=== PATIENT | male | born 1950 | race African-American/Black ===

== ENCOUNTER → 2018-03-31 | Outpatient (REF) | payer OTHER, SELFPAY ==
[2018-03-31 13:26] LABS: FERRITIN 173 NG/ML (26-388); IRON (FE) 93 UG/DL (65-175); PERCENT SATURATION 37.7 % (19.7-50.0); TOTAL IRON BINDING CAPACITY 247 UG/DL (250-450)
[2018-03-31 13:28] LABS: HEPATITIS B SURFACE ANTIBODY NEGATIVE (POSITIVE)
[2018-03-31 13:38] LABS: HEPATITIS B SURFACE ANTIGEN NEGATIVE (NEGATIVE)
[2018-03-31 14:06] LABS: HIV 1&2 SCREEN CENTAUR NEGATIVE (NEGATIVE)
[2018-03-31 14:06] LABS: HEPATITIS C VIRUS ABY INDEX 0.1 INDEX (<0.8)
== END ==
LOC: M LAB REF 12:54
DX: N18.3 Chronic kidney disease, stage 3 (moderate) (principal); R80.9 Proteinuria, unspecified; D63.1 Anemia in chronic kidney disease
CPT/HCPCS: 83550

== ENCOUNTER → 2018-04-11 | Outpatient (CLI) | payer SELFPAY, OTHER | LOC: M RAD 07:28 | DX: N18.3 Chronic kidney disease, stage 3 (moderate) (principal); I12.9 Hypertensive chronic kidney disease with stage 1 through stage 4 chronic kidney disease, or unspecified chronic kidney disease; N13.30 Unspecified hydronephrosis | CPT/HCPCS: 76775 ==

== ENCOUNTER 2018-07-08 10:37 | Inpatient (IN) | payer OTHER, SELFPAY ==
[~2018-07-08] VITALS: Ht 185.4 cm; Wt 94.7 kg
[2018-07-08] MEDS ORDERED: HYDR-3910 PO (11:10)
[2018-07-08] MEDS ORDERED: ACET1TAB55 PO (11:10)
[2018-07-08] MEDS ORDERED: AMLO5TAB6 PO (11:10)
[2018-07-08] MEDS ORDERED: METO1TAB7 PO (11:10)
[2018-07-08] MEDS ORDERED: hydrALAZINE INJ 20 MG/ML VIAL IV ONE ×2 (11:30→13:30)
[2018-07-08] MEDS ORDERED: amLODIPine 5 MG TAB PO ONE ×2 (11:30→14:30)
[2018-07-08 11:33] LABS: HEMATOCRIT 32.4 % (36.0-47.0); MEAN CORPUSCULAR HEMOGLOBIN 28.7 pg (27.0-33.0); MEAN CORPUSCULAR VOLUME 84.6 fl (80.0-96.0); PLATELET COUNT, AUTOMATED 139 10^3/uL (150-450); RED BLOOD COUNT 3.83 10^6/uL (4.00-5.40); WHITE BLOOD COUNT 5.1 10^3/uL (4.0-10.0)
[2018-07-08 12:11] LABS: BLOOD UREA NITROGEN 21 MG/DL (7-18); CALCIUM LEVEL 9.1 MG/DL (8.8-10.2); CARBON DIOXIDE LEVEL 30 MEQ/L (21-32); CHLORIDE LEVEL 106 MEQ/L (98-107); CREATININE FOR GFR 2.31 MG/DL (0.55-1.30); GLOMERULAR FILTRATION RATE 27.2 (>45); GLUCOSE, FASTING 116 MG/DL (70-100); POTASSIUM SERUM 3.6 MEQ/L (3.5-5.1); SODIUM LEVEL 140 MEQ/L (136-145)
[2018-07-08] MEDS ORDERED: METO1TAB33 PO (14:04)
[2018-07-08] MEDS ORDERED: VITA-122 PO (14:04)
[2018-07-08] MEDS: HEPARIN SOD (PORCINE) 5000 UNITS/ML VIAL SC SCH ×2 (14:37→20:58)
--- NOTE | 2018-07-08 15:03 | HPE ---
DATE OF ADMISSION: 07/08/2018 PRIMARY CARE [place] NURSE BEHAVIORAL HEALTH CARE: Dr. Eddie Gutierrez HISTORY OF PRESENT ILLNESS: This is a 67-year-old male with a past medical history of hypertension, chronic kidney disease stage III, who was brought in by his daughter for persistent headache this morning. They state that he has a history of hypertension and being treated with amlodipine, hydralazine, and metoprolol, however, was recently taken off of his amlodipine and hydralazine at home and increased metoprolol dose to 100 mg. Over the past few weeks, they have noted that his blood pressure at home has been significantly elevated with systolic in the 200s since this change was made. They have tried homeopathic remedies, including malanga drink in order to decrease his blood pressure. Currently, the patient has no complaints. He states that his headache has subsided and he denies any blurred vision, eye pain, nausea, vomiting, abdominal pain or difficulty urinating. Of note, he was administered amlodipine 5 mg orally and hydralazine, a total of 50 mg IV in the emergency room. His electrocardiogram (EKG) showed no ST changes and was sinus hernandez on admission. HOME MEDICATIONS: - acetaminophen 650 mg by mouth every 4 hours as needed - amlodipine 5 mg by mouth daily - vitamin D 2000 units by mouth daily - hydralazine 25 mg by mouth twice a day - metoprolol succinate ER 100 mg by mouth daily PAST MEDICAL HISTORY: 1. Hypertension. 2. Chronic kidney disease stage III. ALLERGIES: No known allergies. FAMILY HISTORY: The patient is unsure. PAST SURGICAL HISTORY: Denies any surgeries. REVIEW OF SYSTEMS: GENERAL: Denies any fevers, chills, weight loss, night sweats. HEENT: Denies any vision changes, blurred vision, eye pain, ear pain, dysphagia. Admits to a recent headache with elevated blood pressure that is now resolved. CARDIAC: Denies any chest pain, palpitations. RESPIRATORY: Denies any coughing, wheezing, sputum production. GASTROINTESTINAL: Denies any abdominal pain, nausea or vomiting. EXTREMITIES: Denies any new aches or pains. NEUROLOGIC: Denies any slurred speech or changes in vision or mentation. No new paresthesias. PHYSICAL EXAMINATION: VITAL SIGNS: Temperature 97.8, pulse 54, respirations 18, blood pressure 197/94 with a mean arterial pressure of 128, pulse oximetry 98% on room air. GENERAL: Resting comfortably in bed. Alert and oriented times three. No acute distress. Pleasant and conversant. HEENT: Normocephalic, atraumatic. Pupils are equal, round and reactive to light. Extraocular muscles intact. Anicteric sclerae. No pharyngeal exudates or erythema. CARDIAC: Regular rate and rhythm. Normal S1, S2. No audible murmurs. LUNGS: Clear to auscultation bilaterally. Equal chest rise. No wheezing, rhonchi or rales. ABDOMEN: Soft, nontender, nondistended. Positive bowel sounds. EXTREMITIES: 2+ radial and dorsalis pedis pulses bilaterally. 5/5 strength throughout. Equal oncology pharmacist strength bilaterally. NEUROLOGIC: No focal deficits. Motor and sensation intact. LABORATORIES: WBC 5.1, hemoglobin and hematocrit 11 and 32.4, platelets 139. Sodium 140, potassium 3.6, chloride 106, bicarbonate 30, BUN and creatinine 21 and 2.31. ASSESSMENT AND PLAN: 1. Hypertensive urgency. The patient initially presented with a blood pressure of 216/105 with a MAP of 142, which is mildly improved after being administered 5 mg of oral Norvasc and 50 mg of IV hydralazine in the emergency room. Systolic blood pressure remains around 200 currently. Hypertensive urgency is likely secondary to recent changes to his antihypertensive regimen at home. We will resume him on his home dose of amlodipine and hydralazine and we will cautiously hold his home dose of metoprolol given that he is bradycardic on admission. Consider resuming metoprolol once his heart rate improves. We will closely monitor his blood pressure overnight. We will also obtain a UA to better assess kidney function. He does have a renal ultrasound done just recently in April of this past year with severe right renal atrophy and no renal artery stenosis. The goal is to gradually bring down his blood pressure back to normal. I do NOT anticipate that he will be normotensive tonight. This was discussed with the patient and the daughter. Goal at this point is to keep systolic blood pressure 160 to 180 for today, or decreasing MAP by 25%. 2. Chronic kidney disease stage III. We do not have any previous laboratories to compare his current renal function to. His current creatinine is 2.31 with a GFR of 27. He normally follows with Dr. Eddie Gutierrez, geothermal production manager has been consulted by the emergency room. Appreciate nephrology's input. At this point, there are no dire needs for bedside dialysis. 3. Deep vein thrombosis (DVT) prophylaxis. Heparin subcutaneously. DISPOSITION: Admit to hospitalist service with close monitoring of blood pressure and heart rate. Nephrology consultation in place. My faculty preceptor for this patient encounter was physically present during the encounter and was fully available. All aspects of the patient interview, examination, medical decision making process, and medical care plan development were reviewed and approved by the faculty preceptor. The faculty preceptor is aware and concurs with the plan as stated in the body of this note and will attest to such by his/her co-signature. Attending Attestation I have both independently examined this patient as well as reviewed the h and P . I have discussed in detail with the resident the findings and plan of treatment as documented in the resident's note. I will continue to follow the patient and offer further guidance to the patient's care as necessary during this hospital stay. ALFRED
[2018-07-08 15:38] LABS: CK-MB VALUE MASS < 1.0 NG/ML (<3.6); CPK CREATINE PHOSPHOKINASE 162 U/L (39-308); MAGNESIUM LEVEL 2.5 MG/DL (1.8-2.4); MB/CK RELATIVE INDEX 0.62 (< OR =4); TROPONIN I < 0.02 NG/ML (< 0.10)
[2018-07-08] MEDS: ACETAMINOPHEN TAB 650MG DOSE (2X325MG) PO PRN ×2 (18:54→23:47)
[2018-07-08 19:19] LABS: APPEARANCE, URINE CLEAR (CLEAR); BACTERIA, URINE AUTO NEGATIVE (NEGATIVE); BILIRUBIN, URINE AUTO NEGATIVE (NEGATIVE); BLOOD, URINE BLOOD NEGATIVE (NEGATIVE); COLOR, URINE STRAW (YELLOW); GLUCOSE, URINE (UA) AUTO NEGATIVE (NEGATIVE); KETONE, URINE AUTO NEGATIVE (NEGATIVE); LEUKOCYTE ESTERASE, URINE AUTO NEGATIVE (NEGATIVE); NITRITE, URINE AUTO NEGATIVE (NEGATIVE); PROTEIN, URINE AUTO 1+ mg/dL (NEGATIVE); RBC, URINE AUTO 3 /HPF (0-3); SPECIFIC GRAVITY URINE AUTO 1.009 (1.002-1.035); SQUAMOUS EPITHELIAL CELL UR AU 0 /HPF (0-6); UROBILINOGEN, URINE AUTO 0.2 mg/dL (0.0-2.0); WBC, URINE AUTO 0 /HPF (0-3)
[2018-07-08 19:47] LABS: CPK CREATINE PHOSPHOKINASE 343 U/L (39-308); MB/CK RELATIVE INDEX 0.47 (< OR =4); TROPONIN I < 0.02 NG/ML (< 0.10)
[2018-07-08 20:40] VITALS: BP 190/92
[2018-07-08] MEDS: **hydrALAZINE HCL** 25 MG TAB PO SCH (20:57)
[2018-07-08 21:50] VITALS: BP 182/88
[2018-07-08 23:30] VITALS: BP 190/100
[2018-07-08] MEDS ORDERED: **hydrALAZINE HCL** 25 MG TAB PO ONE (23:45)
[2018-07-09] VITALS (9 sets, daily range): BP systolic 160–200; BP diastolic 60–102
[2018-07-09 03:49] LABS: CPK CREATINE PHOSPHOKINASE 656 U/L (39-308); TROPONIN I < 0.02 NG/ML (< 0.10)
[2018-07-09] MEDS: HEPARIN SOD (PORCINE) 5000 UNITS/ML VIAL SC SCH ×3 (05:38→22:00)
[2018-07-09 06:04] LABS: HEMATOCRIT 32.2 % (42.0-52.0); HEMOGLOBIN 10.8 g/dl (13.5-17.5); MEAN CORPUSCULAR HEMOGLOBIN 28.4 pg (27.0-33.0); MEAN CORPUSCULAR HGB CONC 33.5 g/dl (32.0-36.5); MEAN CORPUSCULAR VOLUME 84.7 fl (80.0-96.0); PLATELET COUNT, AUTOMATED 125 10^3/uL (150-450); WHITE BLOOD COUNT 4.7 10^3/uL (4.0-10.0)
[2018-07-09 06:28] LABS: CREATININE FOR GFR 2.1 MG/DL (0.70-1.30); POTASSIUM SERUM 3.8 MEQ/L (3.5-5.1)
[2018-07-09] MEDS: **hydrALAZINE HCL** 25 MG TAB PO SCH (06:28)
[2018-07-09] MEDS: VITAMIN D 1,000 INTERNATIONAL UNITS TABLET PO SCH (08:48)
[2018-07-09] MEDS: amLODIPine 10 MG TAB PO SCH (08:49)
--- NOTE | 2018-07-09 08:55 | ECGEPIP ---
Stationary ECG Study [facility] - ED Test Date: 2018-07-08 Pat Name: JANETH MOREL Department: Room: - Gender: F Senior Research Scientist: CANDIS : [id number] Requested By: Haroon Calle Order Number: [id number] Reading MD: Haroon Valdes Measurements Intervals [place] Rate: 55 P: 50 CT: 185 QRS: -28 QRSD: 108 T: 3 QT: 437 QTc: 421 Interpretive Statements SINUS BRADYCARDIA SEPTAL MYOCARDIAL INFARCTION, OF INDETERMINATE AGE NSTTW ABNORMALITIES NO PRIORS FOR COMPARISON Electronically Signed On 07-09-2018 8:55:07 EST by Haroon Valdes
[2018-07-09] MEDS ORDERED: amLODIPine 5 MG TAB PO SCH (09:00)
--- NOTE | 2018-07-09 10:33 | REP ---
CT ABDOMEN AND PELVIS WITHOUT IV OR ORAL CONTRAST: RENAL STONE PROTOCOL. HISTORY: Right-sided hydronephrosis. Question ureteral obstruction. Comparison sonography April 11, 2018 showed severe right renal atrophy and right-sided hydronephrosis. No other comparison imaging. CT FINDINGS: Preliminary digital information systems analyst radiograph is unremarkable. The lung bases are clear on axial CT images. There are gallstones in the gallbladder lumen. No focal hepatic lesion is seen. Spleen is unremarkable. Normal adrenal glands are seen. No pancreatic abnormality is seen. There is severe hydronephrosis and moderate hydroureter on the right. There is an intrarenal calculus in the right kidney which measures 5 mm in greatest diameter, but this is not in the ureter. The right hydroureter can be traced to the level of the aortic bifurcation where it courses over the right common iliac artery. No mass or fibrosis is seen. The ureter is not dilated below the vascular crossing. No ureteral stone is observed. No bladder calculus is appreciated. There is no hydronephrosis on the left. No intrarenal calculus is noted on the left. Mild vascular calcification is seen in the abdominal aorta. Normal appendix is seen. Small and large intestinal bowel loops are unremarkable. No retroperitoneal mass or adenopathy is seen. No abdominal wall defect is noted. There are degenerative spondylosis changes in the lumbar spine. IMPRESSION: 1. Cholelithiasis. 2. Marked atrophy and moderate to marked hydronephrosis, right kidney. Hydroureter to the level of the vascular crossing with the right common iliac artery. No etiology for ureteral obstruction is visualized. 3. There is an intrarenal calculus 5 mm in diameter in the right mid kidney. 4. Vascular calcification. Electronically Signed by Kalen Momin MD 07/09/2018 06:50 P
[2018-07-09] MEDS ORDERED: **hydrALAZINE** 50 MG TAB As Ordered ONE (10:43)
[2018-07-09] MEDS: **hydrALAZINE** 50 MG TAB PO SCH ×2 (10:47→22:00)
--- NOTE | 2018-07-09 20:14 | IPN ---
DATE: 07/09/2018 He is better. He denied any headache and any further nausea, vomiting, chest pressure. OBJECTIVE: VITAL SIGNS: Temperature 98.3, pulse 83, respiratory rate 15, blood pressure 160/80, oxygen saturation 97% on room air. GENERAL: He is a very pleasant man sitting up in bed eating breakfast. He does not appear to be in any acute distress. HEENT: Cranial nerves II through XII are grossly intact. He had moist mucous membranes. No elevation in central venous pressure. CARDIOVASCULAR: S1, S2 regular. RESPIRATORY EXAM: Clear. ABDOMINAL EXAM: Obese. EXTREMITIES: No clubbing, cyanosis, or edema. LABORATORY STUDIES: WBC 4.7, hemoglobin 10.8, platelet 125. Chemistry panel: Sodium 141, potassium 3.8, chloride 106, BUN 20, creatinine 2.1, CK 640. Cardiac enzymes are negative. Urinalysis is unremarkable other than 1+ protein. IMAGING: CT scan of the abdomen and pelvis revealed cholelithiasis, marked atrophy and moderate to marked hydronephrosis of the right kidney and hydroureter to the level of the vascular crossing with a right common iliac artery. No etiology or periureteral obstruction is visualized. ASSESSMENT AND PLAN: This is a 67-year man with uncontrolled hypertension. PROBLEMS: 1. Uncontrolled hypertension. Certainly with his renal findings it is a possibility that this is secondary hypertension related to renal vascular hypertension. He is improved at this time. I have titrated the Hydralazine to 50 every 8 as well as increased his amlodipine to 10 mg. I will hold his beta adin given his bradycardia. He may require further titration of his medications. He was also noncompliant with his medications while traveling recently. He has not had them of late which I think is also playing a role. He has had them adjusted through the [facility] and was hoping that was followed up further on the outpatient setting as per his daughter through the nephrology clinic. 2. Mild hydroureter hydronephrosis. Etiology is no immediately clear. There does not appear to be any obstruction and it does not appear to be acute but rather chronic. His renal function is actually improved today. We will consider outpatient urology referral. Nephrology will see the patient today and their help is greatly appreciated. 3. DVT prophylaxis. Heparin. DISPOSITION: Pending optimization of blood pressure.
[2018-07-09] MEDS: CARVedilol 6.25 MG TAB PO SCH (21:59)
[2018-07-10 01:06] VITALS: BP 174/90
[2018-07-10] MEDS: **hydrALAZINE** 50 MG TAB PO SCH ×3 (05:59→21:11)
[2018-07-10 06:00] VITALS: BP 176/100
[2018-07-10] MEDS: HEPARIN SOD (PORCINE) 5000 UNITS/ML VIAL SC SCH ×3 (06:00→21:12)
[2018-07-10 06:42] LABS: HEMATOCRIT 31.3 % (42.0-52.0); HEMOGLOBIN 10.7 g/dl (13.5-17.5); MEAN CORPUSCULAR HEMOGLOBIN 28.8 pg (27.0-33.0); MEAN CORPUSCULAR HGB CONC 34.2 g/dl (32.0-36.5); MEAN CORPUSCULAR VOLUME 84.1 fl (80.0-96.0); PLATELET COUNT, AUTOMATED 133 10^3/uL (150-450); RED BLOOD COUNT 3.72 10^6/uL (4.30-6.10); WHITE BLOOD COUNT 4.7 10^3/uL (4.0-10.0)
[2018-07-10 07:09] LABS: CREATININE FOR GFR 2.33 MG/DL (0.70-1.30); GLOMERULAR FILTRATION RATE 36.3 (>49); POTASSIUM SERUM 3.9 MEQ/L (3.5-5.1)
[2018-07-10 07:10] LABS: CALCIUM LEVEL 8.9 MG/DL (8.8-10.2); PERCENT SATURATION 31.9 % (19.7-50.0)
--- NOTE | 2018-07-10 08:04 | CR ---
DATE OF CONSULTATION: 07/09/2018 REQUESTING PHYSICIAN: Dr. Ann Calderón. REASON FOR CONSULTATION: Management of hypertensive urgency in this patient with chronic kidney disease stage III and proteinuria. CHIEF COMPLAINT: The patient was brought to the emergency room yesterday with headaches and elevated blood pressures. HISTORY OF PRESENT ILLNESS: This patient is a 67-year-old male originally from [facility] with history of chronic kidney disease stage III and hypertension. He followed up once in the nephrology clinic back in March 2018. At that time he was seen for hypertension and proteinuria with chronic kidney disease (CKD) III. His creatinine at that point was around 2.5. All the proteinuria workup was ordered. His medications were adjusted at that point for hypertension. He was supposed to be on metoprolol XL 50 mg daily, amlodipine 10 mg daily, and hydralazine 25 mg by mouth twice a day was added. He was asked to followup in one month; however, the patient never followed up in the clinic. He was supposed to followup again in July; however, I believe the patient was not very compliant with his medications. They report that his metoprolol dose was increased to 100 mg daily and amlodipine and hydralazine was stopped by his primary care physician (PCP). He presented to the emergency room yesterday with a significantly elevated blood pressure. Systolic blood pressures were more than 200. He was having headaches and blurry vision. In the emergency room he was given hydralazine 50 mg intravenous (IV) and a dose of amlodipine 5 mg . There were no EKG changes. The patient was admitted under the hospitalist service last night with hypertensive urgency. Nephrology service was called for further help in the management of this patient with CKD III and hypertension. I saw and evaluated the patient this morning at the bedside. His daughter, who is in active duty in the was also present and she explained to me that the patient's blood pressure at home was not controlled. However, today, the patient is feeling much better as compared with yesterday. His systolic blood pressures are around 160s. PAST MEDICAL HISTORY: 1. Hypertension. 2. Chronic kidney disease stage III. 3. Proteinuria. PAST SURGICAL HISTORY: No significant past surgical history. ALLERGIES: No known drug allergies. FAMILY HISTORY: No significant family history of any end-stage renal disease regarding hemodialysis. SOCIAL HISTORY: The patient denies any illicit drug abuse, alcohol abuse. REVIEW OF SYSTEMS: CONSTITUTIONAL: He denies any fever or chills. EYES: He reported blurry vision on admission; however he is feeling better today. ENT: He denies any dysphagia, odynophagia or ear discharge. CARDIOVASCULAR: He denies any palpitation or chest pain. RESPIRATORY: He denies any shortness of breath. GI: Patient denies any nausea or vomiting. GENITOURINARY: He denies any dysuria, hematuria. MUSCULOSKELETAL: He reports muscle aches or pains. SHEET ROCK TAPER He reported headaches but he denies any strokes or seizures. PSYCH: He denies any depression or anxiety. ENDOCRINE: He denies any diabetes or hypothyroidism. HEMATOLOGICAL/ONCOLOGICAL: He denies any easy bleeding or bruising. SKIN: He denies any rashes or ulcers. The remainder of system review is negative. PHYSICAL EXAMINATION: GENERAL: Patient is awake, alert, oriented times three lying in bed. VITAL SIGNS: Temperature 98.3 degrees Fahrenheit, blood pressure 160/80, pulse 83, respiratory rate 16, saturating 97% on room air. The patient's blood pressure last night was 211/101 when he came in. HEAD AND NECK EXAM: Extraocular muscles intact. Pupils equal, round, reactive to light. Moist mucous membranes. NECK: Neck is supple. There is no jugular venous distention (JVD). CARDIOVASCULAR: S1, S2, regular rate. No murmur, rub or gallop. RESPIRATORY: Chest is clear to auscultation bilaterally. Bilateral equal air entry. No rales or rhonchi. ABDOMEN : Soft, positive bowel sounds, nontender, no ascites, no hepatosplenomegaly. MUSCULOSKELETAL: No clubbing or cyanosis. Pulses 2+. SHEET ROCK TAPER: No focal deficits. Power is 5/5 in all extremities. PSYCHIATRIC: Normal mood and affect. SKIN: No rashes or ulcers. LABORATORY DATA: CBC revealed WBC of 4.7, hemoglobin 10.8, platelets 125. Urinalysis showed 1+ protein. Basic metabolic profile (BMP) showed sodium 141, potassium 3.8, chloride 106, bicarbonate 27, BUN 20, creatinine is 2.1. CPK 6, anion 4, troponin is less than 0.02. IMAGING: CAT scan of the abdomen and pelvis was done without contrast today which showed cholelithiasis, marked atrophy and moderate to mild hydronephrosis of the right kidney. Hydroureter to the level of the vascular crossing with the right common iliac artery. No evidence of ureteral obstruction is visualized. There was an intrarenal calculus 5 mm in diameter in the right kidney. There were vascular calcifications. CURRENT INPATIENT MEDICATIONS: - Tylenol as needed - amlodipine 10 mg daily - hydralazine 50 mg by mouth every 8 hours - vitamin D 2000 units daily - I started the patient on Coreg 6.25 mg by mouth twice daily with holding parameters ASSESSMENT: This patient is a 67-year-old male with chronic kidney disease stage III, right sided hydroureter nephrosis and hypertensive urgency. PLAN: 1. Hypertensive urgency. The patient was not taking the prescribed medications that were prescribed from the nephrology clinic since March 2018. He was only taking metoprolol. He came in with bradycardia and hypertension. The primary team has already started him on hydralazine and amlodipine instead of the metoprolol I have started him on carvedilol 6.25 mg by mouth twice a day with holding parameters. Continue the current regimen, the next change in regimen will be done after 24 hours of medications. 2. Rt sided Hydroureteronephrosis: Pt needs to be seen by urology for possible cystoureteroscopy. 3. Chronic kidney disease stage III. This is mostly secondary to hypertensive nephrosclerosis but the patient has severe right sided hydroureter nephrosis. The patient needs evaluation by urology for distal ureteroscopy. 4. Proteinuria. The patient has mild persistent proteinuria. All of the workup was already ordered in the clinic last time. I will not repeat the serology at this point. It might be associated with hypertension; however, right-sided hydroureteronephrosis workup for obstruction needs to be done. 5. Anemia secondary to chronic kidney disease. Hemoglobin is 10.8 which is optimal. I am going to check his iron levels. 6. Secondary hyperparathyroidism of renal origin. I am going to check the PTH levels tomorrow morning. Thank you for involving me in the care of this patient. I shall be happy to follow the patient along with you tomorrow morning. KIMBERLYD
[2018-07-10] MEDS ORDERED: FLUBLOK(EGG FREE)(QUAD)INFLUENZA VACC 0.5ML SYRINGE (90682)18YRS&OLDER IM ONE (09:00)
[2018-07-10 10:07] VITALS: BP 180/90
[2018-07-10 10:40] LABS: PTH INTACT 169.4 PG/ML (18.5-88.0)
[2018-07-10] MEDS: CARVedilol 6.25 MG TAB PO SCH ×2 (10:48→21:11)
[2018-07-10] MEDS: amLODIPine 10 MG TAB PO SCH (10:48)
[2018-07-10] MEDS: VITAMIN D 1,000 INTERNATIONAL UNITS TABLET PO SCH (10:48)
--- NOTE | 2018-07-10 11:41 | IPNPDOC ---
Text Note Date of Service The patient was seen on 07/10/18. NOTE Subjective: Patient was examined at bedside, no acute complaint, he was afebrile overnight. He was eating breakfast. Denies chest pain, denies nausea, denied vomiting, cesar es shortness of breath, or difficulty breathing. OBJECTIVE: VITAL SIGNS: See below GENERAL: Pleasant, elderly, -Prydeinig gentleman, in breakfast, no acute complaints HEENT: Head is atraumatic, neck is supple, no JVD, throat is moist CARDIOVASCULAR: S1, S2 normal and regular. RESPIRATORY EXAM: Clear to auscultate anterior, no wheezing ABDOMINAL EXAM: Soft, nontender, obese abdomen EXTREMITIES: No deformity, no cyanosis LABORATORY STUDIES: See below IMAGING: CT scan of the abdomen and pelvis revealed cholelithiasis, marked atrophy and moderate to marked hydronephrosis of the right kidney and hydroureter to the level of the vascular crossing with a right common iliac artery. No etiology or periureteral obstruction is visualized. ASSESSMENT AND PLAN: This is a 67-year -Prydeinig gentleman, admitted for uncontrolled hypertension, in hypertensive urgency. PROBLEMS: # Uncontrolled hypertension. 2/2 Medication noncompliance, 2/2 renal vascular hypertension, unlikely to be PRICE, 2/2 Hydronephrosis -Current regimen including carvedilol 6.5 mg twice a day, hydralazine 50 mg every 8 hours, Norvasc 10 mg by mouth daily, blood pressure is averaging around 170/100, this is an improvement over presenting blood pressure. We'll continue to monitor. Make medication adjustment as necessary. -Nephrology has been consulted, appreciate input -PRICE questionnaire, patient does not snore at night, does not wake up in the middle of night gasping for air, denies daytime somnolence, -Patient will follow [facility] for [facility] therapy #Mild hydroureter hydronephrosis. Etiology is no immediately clear. - Inpatient urology consult for nuclear medicine scan to determine the functionality of the kidney - BUN and creatinine had been trending down. However, there was an increase in both BUN and creatinine. Current BUN is 23, current creatinine is 2.33 -Nephrology consulted # DVT prophylaxis. Heparin. VS,Fishbone, I+O VS, Fishbone, I+O Laboratory Tests 07/10/18 06:14 Red Blood Count 3.72 L, Mean Corpuscular Volume 84.1, Mean Corpuscular Hemoglobin 28.8, Mean Corpuscular Hemoglobin Concent 34.2, Red Cell Distribution Width 14.1, Calcium Level 8.9 Vital Signs Date Time Temp Pulse Resp B/P (MAP) Pulse Ox O2 Delivery O2 Flow Rate FiO2 07/10/18 10:48 94 180/90 07/10/18 10:07 98.2 16 96 07/08/18 20:20 Room Air I&O- Last 24 Hours up to 6 AM 07/10/18 05:59 Intake Total 1300 ml Output Total 1725 ml Balance -425 ml GME ATTESTATION GME ATTESTATION My faculty preceptor for this patient encounter was physically present during the encounter and was fully available. All aspects of the patient interview, examination, medical decision making process, and medical care plan development were reviewed and approved by the faculty preceptor. The faculty preceptor is aware and concurs with the plan as stated in the body of this note and will attest to such by his/her cosignature. HAZEL FRASER DO Jul 10, 2018 11:41
[2018-07-10 13:50] VITALS: BP 170/72
--- NOTE | 2018-07-10 15:28 | REP ---
Nuclear renal scintigraphy with differential flow and function analysis: History: Chronic right-sided hydronephrosis. Chronic kidney disease. Comparison study CT exam July 09, 2018. Technique: 8.8 mCi of technetium 99m MAG3 is injected and posterior flow and excretory phase images are acquired. Renal cortical regions of interest are drawn and time activity curves are plotted for renal function analysis. Scintigraphic findings: The posterior flow study shows normal perfusion of the left kidney and absent perfusion activity on the right. Excretory phase images show no discernible right renal function until the 7 to 8 minute miley when there is faint uptake in the atrophic right kidney. No left renal mass is seen. Renal collecting system labeling is observed at the 4 minute miley on the left. There is no evidence of left-sided obstructive uropathy. Pre and postvoid images show extremely poor visualization of the right kidney, but are otherwise unremarkable. Differential renal function analysis is asymmetric of course with a 91% of counts coming from the left kidney and 9% of renal cortical counts emanating from the right kidney. Time to peak activity is essentially normal on the left at 3.0 minutes. Time to half max activity is delayed on the left at 17.1 minutes. There is not sufficient count activity in the right kidney to accurately quantify T-max or time to half max. Impression: Extremely poor, barely visible function right kidney. The collecting system and ureter were never visualized. Slightly flattened excretion curve on the left as well. No obstructive uropathy on the left. Electronically Signed by Kalen Momin MD 07/10/2018 10:28 P
--- NOTE | 2018-07-10 15:49 | CR.PDOC ---
General Date of Consultation: Jul 10, 2018 Referring Provider: BETTY SAGE MD Primary Care Physician: JOJO NÚÑEZ MD Attending Physician: BETTY SAGE MD Consultation REASON FOR CONSULTATION/CHIEF COMPLAINT: hydronephrosis right kidney. HISTORY OF PRESENT ILLNESS: 10year h/o flank pain, hypertension and recent hypertensive crisis and associated headache in a recently immigrated 67yo male from [facility]. Pt is living in [place] with is daughter and . His daughter brought him to the hospital d/t headache and was identified with extension of nephrologic disease. He has been under the care of nephrology since march 2018. ALLERGIES: Please see below. HOME MEDICATIONS: Please see below. PAST MEDICAL HISTORY: 1. hypertension. 2. flank pain. 3. former smoker (stopped 10y ago) PAST SURGICAL HISTORY: 1. none FAMILY HISTORY: no h/o kidney disease or diabetes SOCIAL HISTORY: Marital status and/or living arrangements: Children: daughter in town Tobacco use:former ETOH: no Illicit drug use:no REVIEW OF SYSTEMS: CONSTITUTIONAL: He denies any fever or chills. EYES: He reported blurry vision on admission; however he is feeling better today. ENT: He denies any dysphagia, odynophagia or ear discharge. CARDIOVASCULAR: He denies any palpitation or chest pain. RESPIRATORY: He denies any shortness of breath. GI: Patient denies any nausea or vomiting. GENITOURINARY: He denies any dysuria, hematuria. leaves small amount of urine behind MUSCULOSKELETAL: He reports muscle aches or pains. TINSMITH APPRENTICE He reported headaches but he denies any strokes or seizures. PSYCH: He denies any depression or anxiety. ENDOCRINE: He denies any diabetes or hypothyroidism. HEMATOLOGICAL/ONCOLOGICAL: He denies any easy bleeding or bruising. SKIN: He denies any rashes or ulcers. The remainder of system review is negative. PHYSICAL EXAMINATION: GENERAL: Patient is awake, alert, oriented times three lying in bed. VITAL SIGNS: The patient's blood pressure last night was 211/101 when he came in. HEAD AND NECK EXAM: Extraocular muscles intact. Pupils equal, round, reactive to light. Moist mucous membranes. NECK: Neck is supple. There is no jugular venous distention (JVD). CARDIOVASCULAR: S1, S2, regular rate. No murmur, rub or gallop. RESPIRATORY: Chest is clear to auscultation bilaterally. Bilateral equal air entry. No rales or rhonchi. ABDOMEN : Soft, positive bowel sounds, nontender, no ascites, no hepatosplenomegaly. MUSCULOSKELETAL: No clubbing or cyanosis. Pulses 2+. TINSMITH APPRENTICE: No focal deficits. Power is 5/5 in all extremities. PSYCHIATRIC: Normal mood and affect. SKIN: No rashes or ulcers. LABORATORY DATA: Please see below. ASSESSMENT/PLAN: 1. requested urology consult: nm study completed appears the<13% function; r/b/a of surgery (lap v. robotic v. open) offered. Pt can be scheduled for as soon as 07/22/18. It is an ablative procedure so should not be extensive length of stay. spoke with nephrology. I believe this will help with bp control, but can not guarantee that. at this function there is no reconstructions necessary. there is a possibility of sl worse renal function for its <13% contribution. risks do not outweigh the benefit. I believe stopping the flow to the bad kidney will preserve the good kidney for longer. 2. would appreciate if pt had clearances from nephrology and hospitalist from their respective perspectives. I am ordering cxr and ekg that I would appreciated dr. sage commenting on for clearance. i will also psa f and total and start him on flomax for incomplete emptying. 3. this all can be done as an outpatient as the procedure is elective. Pt may request a second opinion if he chooses. all this was discussed with the patient directly. happy to discuss with patient and family as an outpatient. Vital Signs/I&O Vital Signs Date Time Temp Pulse Resp B/P (MAP) Pulse Ox O2 Delivery O2 Flow Rate FiO2 07/10/18 14:09 170/72 07/10/18 13:50 98.1 84 16 98 07/08/18 20:20 Room Air I&O- Last 24 Hours up to 6 AM 07/10/18 06:00 Intake Total 1330 ml Output Total 1725 ml Balance -395 ml Laboratory Data Labs 24H Laboratory Tests 2 07/10/18 06:14: Nucleated Red Blood Cells % (auto) 0.0, Anion Gap 7L, Glomerular Filtration Rate 36.3L, Blood Urea Nitrogen 23H, Creatinine 2.33H, Sodium Level 140, Potassium Level 3.9, Chloride Level 105, Carbon Dioxide Level 28, Calcium Level 8.9, Iron Level 72, Total Iron Binding Capacity 226L, Transferrin % Saturation 31.9, Ferritin 121, Parathyroid Hormone (Intact) 169.4H CBC/BMP Laboratory Tests 07/10/18 06:14 Red Blood Count 3.72 L, Mean Corpuscular Volume 84.1, Mean Corpuscular Hemoglobin 28.8, Mean Corpuscular Hemoglobin Concent 34.2, Red Cell Distribution Width 14.1, Calcium Level 8.9 Allergies Coded Allergies: No Known Allergies (Unverified , 07/08/18) Home Medications Scheduled Amlodipine Besylate (Amlodipine Besylate) 5 Mg Tab, 5 MG PO DAILY, (Reported) Cholecalciferol (Vitamin D3) 1,000 Unit Tab, 2,000 UNIT PO DAILY, (Reported) Hydralazine HCl (Hydralazine HCl) 25 Mg Tab, 25 MG PO BID, (Reported) Metoprolol Succinate (Metoprolol Succinate ER) 100 Mg Tab, 100 MG PO DAILY, (Reported) Scheduled PRN Acetaminophen (Acetaminophen) 325 Mg Tab, 650 MG PO Q4H PRN for PAIN, (Reported) Andrews Wade MD Jul 10, 2018 15:49
[2018-07-10 22:00] VITALS: BP 162/78
[2018-07-11 02:05] VITALS: BP 178/72
[2018-07-11 06:00] VITALS: BP 172/76
[2018-07-11] MEDS: **hydrALAZINE** 50 MG TAB PO SCH (06:00)
[2018-07-11] MEDS: HEPARIN SOD (PORCINE) 5000 UNITS/ML VIAL SC SCH (06:00)
[2018-07-11 06:17] LABS: HEMATOCRIT 31.5 % (42.0-52.0); HEMOGLOBIN 10.8 g/dl (13.5-17.5); MEAN CORPUSCULAR HGB CONC 34.3 g/dl (32.0-36.5); MEAN CORPUSCULAR VOLUME 84.5 fl (80.0-96.0); PLATELET COUNT, AUTOMATED 127 10^3/uL (150-450); RED BLOOD COUNT 3.73 10^6/uL (4.30-6.10); WHITE BLOOD COUNT 4.9 10^3/uL (4.0-10.0)
[2018-07-11 06:34] LABS: CALCIUM LEVEL 8.9 MG/DL (8.8-10.2); CREATININE FOR GFR 2.38 MG/DL (0.70-1.30); GLOMERULAR FILTRATION RATE 35.5 (>49); POTASSIUM SERUM 3.7 MEQ/L (3.5-5.1)
[2018-07-11 08:19] VITALS: BP 160/70
[2018-07-11 08:23] VITALS: BP 160/70
[2018-07-11] MEDS: amLODIPine 10 MG TAB PO SCH (08:23)
[2018-07-11] MEDS: CARVedilol 6.25 MG TAB PO SCH (08:23)
[2018-07-11] MEDS: VITAMIN D 1,000 INTERNATIONAL UNITS TABLET PO SCH (08:23)
[2018-07-11] MEDS ORDERED: HYDR50TA PO ×2 (08:40→08:49)
[2018-07-11] MEDS ORDERED: AMLO10TA5 PO ×2 (08:40→08:45)
[2018-07-11] MEDS ORDERED: CARV6.25 PO ×2 (08:40→08:47)
[2018-07-11] MEDS ORDERED: VITAD1000T PO ×2 (08:40→08:49)
[2018-07-11] MEDS ORDERED: FLOM0.4C39 PO ×2 (08:40→08:49)
[2018-07-11] MEDS ORDERED: TAMSULOSIN 0.4 MG CAP PO SCH (09:00)
[2018-07-11] MEDS ORDERED: CALCITRIOL 0.25 MCG CAP (S0169) PO SCH (09:00)
--- NOTE | 2018-07-11 11:17 | IPN ---
DATE OF SERVICE: 07/10/2018 SUBJECTIVE: Patient was seen and examined at the bedside today morning. He is afebrile, hemodynamically stable. His blood pressures are still slightly high. He is non-oliguric. Renal function is stable. Creatinine has been fluctuating from 2.1 - 2.3 which is close to his baseline. His electrolytes are within acceptable range. Patient got a nuclear renal scan done which showed right sided renal atrophy with only 9% split renal function on the right side. CURRENT INPATIENT MEDICATIONS: Patient's medications are all reviewed by me. He is on Coreg, amlodipine and hydralazine. No other change in the medications today as compared with yesterday. OBJECTIVE: Vital signs: Temperature is 98.1 degrees Fahrenheit, blood pressure 170/72, pulse is 84, respiratory rate of 16, saturating 98% on room air. Intake and output: Urine output recorded as 2.2 liter yesterday, 600 mL so far today. PHYSICAL EXAMINATION: General: Patient is awake, alert, oriented times three, obese, sitting comfortable in the bed, no apparent distress. Head and neck exam: Extraocular muscles intact. Pupils equally round and reactive to light. Mucous membranes are moist. Neck is supple, there is no jugular venous distention (JVD). Cardiovascular: S1, S2. Regular rate. No murmur, rub or gallop. Respiratory: Chest is clear to auscultation bilaterally. Bilateral equal air entry. No rales or rhonchi. Abdomen is soft, positive bowel sounds. Nontender. No ascites. No organomegaly. Musculoskeletal: No clubbing or cyanosis. Pulses are 2+. Central nervous system: No focal neurological deficit. Power is 5/5 in all extremities. LAB REVIEW: CBC showed WBC 4.7, hemoglobin 10.7, platelets of 133. BMP showed sodium 140, potassium 3.9, chloride 105, bicarbonate 28, BUN 43, creatinine is 2.3, it was 2.1 yesterday. Iron is 72. TIBC 226. Transferrin saturation 31.9, ferritin is 121. PTH is 169. ASSESSMENT AND PLAN: 1. Hypertensive urgency. Patient is currently on amlodipine, hydralazine and carvedilol. Blood pressures are still high. I am going to check the plasma aldosterone [id number] renin activity ratio and metanephrines levels as well. Most likely hypertension is secondary to hyperaldosteronism induced by right-sided renal atrophy. Once the renin aldosterone tests are done, I will try to start the patient on low dose of angiotensin receptor adin to help manage the blood pressure. 2. Right sided renal atrophy. This was discussed with urology today. Renal function from the right side is less than 10%. Patient would likely benefit from right sided robotic nephrectomy which will help with the blood pressure as well. Procedure will be done as outpatient. 3. Chronic kidney disease stage III, majority of the function is coming from the left kidney. Creatinine has been fluctuating between 2.1 - 2.3 which is close to his baseline. 4. Anemia in chronic kidney disease. Iron levels are adequate. No need of Aranesp administration at this point. 5. Secondary hypoparathyroidism. Start the patient on calcitriol 0.25 mcg by mouth Saturday, Saturday, Saturday. 6. Proteinuria. Workup was already started in the clinic. The rest of the workup will be done as outpatient. It is most likely secondary to hyperfiltration from the left kidney.
--- NOTE | 2018-07-11 15:27 | DS.PDOC ---
Discharge Summary General Date of Admission Jul 08, 2018 at 16:18 Date of Discharge 07/11/18 Primary Care Physician: Niki Attending Physician: BETTY SAGE MD Specialist/Consultants Involve: JOJO NÚÑEZ MD Specialist/Consultants Involve Andrews Barton MD Discharge Summary PROCEDURES PERFORMED DURING STAY: Renal Scan w/Medication NM ADMITTING DIAGNOSES: 1. Hypertensive urgency DISCHARGE DIAGNOSES: 1. Hypertension 2. Hydronephrosis 3. Chronic kidney disease stage III 4. Proteinuria COMPLICATIONS/CHIEF COMPLAINT: Chronic Kidney Disease Stage Iii Hypertensive Urge. HISTORY OF PRESENT ILLNESS: This patient is a 67-year-old, Male, male originally from [facility] with a past medical history of chronic kidney disease stage III and hypertension. On admission he was supposed to be on metoprolol XL 50 mg daily, amlodipine 10 mg daily, and hydralazine 25 mg by mouth twice. Under the recomendations of his saddle cutter, however pt was lost to follow up at the nephrology office. On pr esentation to the ED patient stated that his metoprolol dose was increased to 100 mg daily and Norvasc and hydralazine were discontinued by his PCP. On presentation he had significant elevated systolic blood pressure more than 200, he also complained of headache and blurry vision. He was given IV hydralazine in the ED and Norvasc 5 mg[address] no [address] changes and EKG. He was admitted to the hospitalist service with nephrology consult. HOSPITAL COURSE: During his hospital stay. His medication was adjusted to include Coreg 6.25 mg twice a day, hydralazine 50 mg every 8 hours, Norvasc 10 mg daily. His metoprolol was discontinued. Evaluation in the hospital revealed that patient had marked right kidney hydronephrosis, with hydroureter. Urology was consulted, patient was evaluated with nuclear medicine scan, and determined that patient had less than 13% function in the right kidney. Urology discussed with patient options for laparoscopic versus robotic versus open ablative procedure. Patient agreed to procedure, after the risks and benefits were explained to patient by urology. Procedure has been scheduled for outpatient status. Patient was medically optimized in the hospital, however he was also instructed to follow-up with PCP for medical optimization prior to procedure. Patient follow-up with urology, PCP as well as nephrology. On day of discharge patient had no questions. His blood pressure was stable on discharge. DISCHARGE MEDICATIONS: Please see below. ALLERGIES: Please see below. PHYSICAL EXAMINATION ON DISCHARGE: VITALS: See Below GENERAL APPEARANCE: Alert no acute distress. Neck: No JVD SKIN: Warm, well perfused. LUNGS: Clear to auscultation bilaterally. HEART: Normal S1, S2. No murmurs, no rubs, no gallops ABDOMEN: Soft. No masses. Bowel sounds are present. EXTREMITIES: Moves all extremities equally. No gross deformities. PULSES: 2+ upper and lower extremity . LABORATORY DATA: Please see below. IMAGING: CT of abdomen without contrast 1. Cholelithiasis. 2. Marked atrophy and moderate to marked hydronephrosis, right kidney. Hydroureter to the level of the vascular crossing with the right common iliac artery. No etiology for ureteral obstruction is visualized. 3. There is an intrarenal calculus 5 mm in diameter in the right mid kidney. 4. Vascular calcification. Nuclear medicine kidney scan Extremely poor, barely visible function right kidney. The collecting system and ureter were never visualized. Slightly flattened excretion curve on the left as well. No obstructive uropathy on the left. PROGNOSIS: Stable ACTIVITY: As tolerated. DIET: Renal diet DISCHARGE PLAN:. Home with close follow-up DISPOSITION: 01 Home, Self-Care. DISCHARGE INSTRUCTIONS: 1. Follow-up with PCP, follow-up with urology, follow-up with nephrology ITEMS TO FOLLOWUP ON ON OUTPATIENT: 1. Medical optimization for urologic procedure 2. Blood pressure control 3. 24-hour urine collection for metanephrines DISCHARGE CONDITION: Stable. TIME SPENT ON DISCHARGE: Greater than 30 minutes. Vital Signs/I&Os Vital Signs Date Time Temp Pulse Resp B/P (MAP) Pulse Ox O2 Delivery O2 Flow Rate FiO2 07/11/18 08:23 84 160/70 07/11/18 06:00 98.2 18 95 07/08/18 20:20 Room Air I&O- Last 24 Hours up to 6 AM 07/11/18 06:00 Intake Total 1660 ml Output Total 300 ml Balance 1360 ml Laboratory Data Labs 24H Laboratory Tests 2 07/11/18 05:39: Anion Gap 7L, Glomerular Filtration Rate 35.5L, Blood Urea Nitrogen 22H, Creatinine 2.38H, Sodium Level 140, Potassium Level 3.7, Chloride Level 107, Carbon Dioxide Level 26, Calcium Level 8.9 07/11/18 05:40: Nucleated Red Blood Cells % (auto) 0.0 CBC/BMP Laboratory Tests 07/11/18 05:39 Calcium Level 8.9 07/11/18 05:40 Red Blood Count 3.73 L, Mean Corpuscular Volume 84.5, Mean Corpuscular Hemoglobi n 29.0, Mean Corpuscular Hemoglobin Concent 34.3, Red Cell Distribution Width 14.2 Discharge Medications Scheduled Amlodipine Besylate (Amlodipine Besylate) 10 Mg Tab, 10 MG PO DAILY Carvedilol (Carvedilol) 6.25 Mg Tab, 6.25 MG PO BID Hydralazine HCl (Hydralazine HCl) 50 Mg Tab, 50 MG PO Q8H Tamsulosin Hydrochloride (Flomax) 0.4 Mg Cap, 0.4 MG PO DAILY Vitamin D (Vitamin D3) 1,000 Units Tab, 2,000 UNITS PO DAILY Allergies Coded Allergies: No Known Allergies (Unverified , 07/08/18) HAZEL FRASER DO Jul 11, 2018 15:27
--- NOTE | 2018-07-12 10:46 | IPN ---
DATE OF SERVICE: 07/11/2018 SUBJECTIVE: Patient was seen and examined at the bedside today morning. He is afebrile, hemodynamically stable. Blood pressures are better controlled. They have come down to systolic of 160s. Renal function is stable. Creatinine is fluctuating at 2.3. The patient was seen by urology and he was recommended to have the right sided nephrectomy done electively as an outpatient because right kidney is atrophic and there is less than 10% GFR coming from the right kidney and it might be contributing to elevated blood pressures. OBJECTIVE: Vital Signs: Temperature is 98.2 degrees Fahrenheit, blood pressure 160/70, pulse is 84, respiratory rate of 18, saturating 95% on room air. Intake and Output: Urine output recorded as 550 mL since overnight. Weight on the bed scale is not available. PHYSICAL EXAMINATION: General: Patient is awake, alert, oriented times three, laying in bed, in no apparent distress. Head and Neck Exam: Extraocular muscles intact. Pupils equally round and reactive to light. Mucous membranes are moist. Neck is supple. There is no jugular venous distention (JVD). Cardiovascular: S1 and S2. Regular rate. No murmur, rub or gallop. No edema of the bilateral lower extremities. Respiratory: Chest is clear to auscultation bilaterally. Bilateral equal air entry. No rales or rhonchi. Abdomen is soft, positive bowel sounds. Nontender. No ascites. No organomegaly. Musculoskeletal: No clubbing or cyanosis. Pulses are 2+. Central Nervous System: No focal deficit. Power is 5/5 in all extremities. LAB REVIEW: CBC showed WBC of 4.9, hemoglobin 10.8, platelets of 127. BMP showed sodium 140, potassium 3.7, chloride 107, bicarbonate 26, BUN 22, creatinine is 2.3. Plasma and inactivity is pending. Urine metanephrine and normetanephrine are pending. CURRENT INPATIENT MEDICATIONS: Current inpatient medications are all reviewed by me. Patient continues to be on the same medications as yesterday. There is no change in the medications today. ASSESSMENT AND PLAN: 1. Renal vascular hypertension. The patient's blood pressure is better controlled now. Workup for secondary causes of hypertension are still pending. Continue current dose of carvedilol, amlodipine and hydralazine. Rest of the management will be done as outpatient. 2. Right sided renal atrophy. The patient was seen by urology. I appreciate their recommendations. The patient needs elective right sided nephrectomy as outpatient. 3. Chronic kidney disease stage III. Renal function is stable. Creatinine has been fluctuating at 2.3. The majority of the function is from the left kidney. 4. Secondary hyperparathyroidism. Continue current dose of calcitriol Saturday, Saturday, Saturday. 5. Proteinuria. Patient got a workup done as outpatient already. I will not repeat a workup at this point. 6. Disposition. It is okay to discharge the patient from a nephrology standpoint. He will be followed up in nephrology within one week after discharge from the hospital.
[2018-07-12 15:39] LABS: PSA TOTAL 0.8 ng/mL (0.0-4.0)
== END 2018-07-11 12:37 | disposition home or self-care (01) | DRG 468 ==
LOC: EDSEX 10:37 → M ED 10:37 → M ED INP 16:18 → M MSPAV 20:30
PROVIDERS: ADMIT Internal Medicine; ATTEND Internal Medicine
DX: I12.9 Hypertensive chronic kidney disease with stage 1 through stage 4 chronic kidney disease, or unspecified chronic kidney disease (principal); N25.81 Secondary hyperparathyroidism of renal origin; N18.3 Chronic kidney disease, stage 3 (moderate); N13.30 Unspecified hydronephrosis; I16.0 Hypertensive urgency; Z79.899 Other long term (current) drug therapy; D63.1 Anemia in chronic kidney disease; Z91.19 Patient's noncompliance with other medical treatment and regimen; Z87.891 Personal history of nicotine dependence

== ENCOUNTER → 2018-07-14 | Outpatient (REF) | payer SELFPAY ==
[~2018-07-14] MED LIST: ACET1TAB55 PO; AMLO10TA5 PO; AMLO5TAB6 PO; CARV6.25 PO; FLOM0.4C39 PO; HYDR-3910 PO; HYDR50TA PO; METO1TAB33 PO; METO1TAB7 PO; VITA-122 PO; VITAD1000T PO
[2018-07-18 00:08] LABS: METANEPHRINE TOTAL URINE 193 ug/L (Undefined); METANEPHRINE URINE 598 ug/24 hr (45-290); NORMETANEPHRINE TOTAL URINE 902 ug/L (Undefined); NORMETANEPHRINE URINE 2796 ug/24 hr (82-500)
== END ==
LOC: M LAB REF 14:56
PROVIDERS: ATTEND Internal Medicine
DX: I10 Essential (primary) hypertension (principal)

== ENCOUNTER → 2018-07-29 | Outpatient (CLI) | payer SELFPAY ==
--- NOTE | 2018-07-29 14:24 | REP ---
Chest two views HISTORY: Preop Comparison: None The lungs are clear. The heart is normal in size. The pulmonary vasculature is normal in appearance. The bony structure is intact. IMPRESSION: No acute disease. Electronically Signed by Remi Madrid MD 07/29/2018 02:16 P
[2018-07-29 18:34] LABS: HEMATOCRIT 33.4 % (42.0-52.0); HEMOGLOBIN 10.9 g/dl (13.5-17.5); MEAN CORPUSCULAR HEMOGLOBIN 28.1 pg (27.0-33.0); MEAN CORPUSCULAR HGB CONC 32.6 g/dl (32.0-36.5); MEAN CORPUSCULAR VOLUME 86.1 fl (80.0-96.0); PLATELET COUNT, AUTOMATED 179 10^3/uL (150-450); RED BLOOD COUNT 3.88 10^6/uL (4.30-6.10); WHITE BLOOD COUNT 5.7 10^3/uL (4.0-10.0)
[2018-07-29 18:35] LABS: CALCIUM LEVEL 9.1 MG/DL (8.8-10.2); CREATININE FOR GFR 2.29 MG/DL (0.70-1.30); GLOMERULAR FILTRATION RATE 37.1 (>49); POTASSIUM SERUM 3.9 MEQ/L (3.5-5.1)
[2018-07-29 18:45] LABS: INR 0.98; PARTIAL THROMBOPLASTIN TIME 27.5 SECONDS (25.4-37.6); PROTHROMBIN TIME 13.1 SECONDS (12.1-14.4)
== END ==
LOC: M SMT 13:43
PROVIDERS: ATTEND Urology
DX: Z01.818 Encounter for other preprocedural examination (principal); N26.1 Atrophy of kidney (terminal)

== ENCOUNTER 2018-08-21 05:59 | Inpatient (IN) | payer SELFPAY ==
[~2018-08-21] VITALS: Ht 185.4 cm; Wt 107.0 kg
[2018-08-21] VITALS (7 sets, daily range): BP systolic 136–152; BP diastolic 78–83
[~2018-08-21 05:59] MED LIST changes: +LR 1,000 ML IV ONE
[2018-08-21] MEDS ORDERED: BUPIVACAINE HCL 0.25% 30 ML VIAL As Ordered ONE (07:13)
[2018-08-21] MEDS ORDERED: LIDOCAINE 1% SDV INJ 30 ML VIAL As Ordered ONE (07:13)
[2018-08-21] MEDS: NS 1,000 ML IV SCH ×3 (07:36→21:50)
[2018-08-21] MEDS ORDERED: ACETAMINOPHEN TAB 650MG DOSE (2X325MG) PO PRN (07:45)
[2018-08-21] MEDS ORDERED: PERCOCET 5MG/325MG TAB PO PRN ×2 (07:45→12:00)
[2018-08-21] MEDS ORDERED: ONDANSETRON 4MG/2ML VIAL (J2405) IV PRN ×2 (07:45→12:00)
[2018-08-21] MEDS ORDERED: MORPHINE 4 MG/ML 1ML VIAL/SYRINGE (J2270) IV PRN (07:45)
[2018-08-21] MEDS ORDERED: VASOPRESSIN INJ 20 UNITS/ML VIAL As Ordered ONE (08:19)
[2018-08-21] MEDS ORDERED: ROCURONIUM BROMIDE 50 MG/5 ML VIAL As Ordered ONE ×3 (08:20→10:19)
[2018-08-21] MEDS ORDERED: PHENYLephrine HCL 500 MCG/5 ML (100MCG/ML) SYRINGE (J2370) As Ordered ONE ×2 (08:29→09:49)
[2018-08-21] MEDS ORDERED: LIDOCAINE 2% INJ 100 MG/5 ML SDV (FOR ANES.) As Ordered ONE (08:29)
[2018-08-21] MEDS ORDERED: fentaNYL 250 MCG/5 ML INJECTION (J3010) As Ordered ONE (08:29)
[2018-08-21] MEDS ORDERED: dexameTHASONE 4 MG/ML 1ML VIAL (J1100) As Ordered ONE (08:29)
[2018-08-21] MEDS ORDERED: MIDAZOLAM INJ 2 MG/2 ML VIAL (J2250) As Ordered ONE (08:29)
[2018-08-21] MEDS ORDERED: ePHEDrine SULFATE 25 MG/5 ML(5MG/ML) SYRINGE As Ordered ONE (08:29)
[2018-08-21] MEDS ORDERED: PROPOFOL 200 MG/20 ML VIAL As Ordered ONE ×2 (08:29→11:00)
[2018-08-21] MEDS ORDERED: GLYCOPYRROLATE INJ 0.2 MG/ML 2 ML VIAL As Ordered ONE ×2 (08:29→09:45)
[2018-08-21] MEDS ORDERED: HYDROmorphone HCL 2 MG/ML 1ML VIAL (J1170) As Ordered ONE (08:29)
[2018-08-21] MEDS ORDERED: ONDANSETRON 4MG/2ML VIAL (J2405) As Ordered ONE (08:29)
[2018-08-21] MEDS: DOCUSATE SODIUM 100 MG CAP PO SCH ×2 (09:00→21:28)
[2018-08-21] MEDS ORDERED: NEOSTIGMINE 10 MG/10 ML VIAL (J2710) As Ordered ONE (09:45)
[2018-08-21] MEDS ORDERED: SUGAMMADEX SODIUM 500 MG/5 ML VIAL (BRIDION) As Ordered ONE (11:38)
[2018-08-21] MEDS ORDERED: METOCLOPRAMIDE INJ 10MG/2ML VIAL (J2765) IV PRN (12:00)
[2018-08-21] MEDS ORDERED: HYDROMORPHONE HCL 0.5 MG/ 0.5 ML SYRINGE (J1170 PER 1) IV PRN (12:00)
[2018-08-21] MEDS ORDERED: LR 1,000 ML IV SCH (12:00)
[2018-08-21 12:05] LABS: HEMATOCRIT 30.7 % (42.0-52.0); HEMOGLOBIN 10.3 g/dl (13.5-17.5); MEAN CORPUSCULAR HEMOGLOBIN 28.5 pg (27.0-33.0); MEAN CORPUSCULAR HGB CONC 33.6 g/dl (32.0-36.5); MEAN CORPUSCULAR VOLUME 84.8 fl (80.0-96.0); PLATELET COUNT, AUTOMATED 129 10^3/uL (150-450); RED BLOOD COUNT 3.62 10^6/uL (4.30-6.10); WHITE BLOOD COUNT 8.1 10^3/uL (4.0-10.0)
[2018-08-21] MEDS: fentaNYL 100 MCG/2 ML INJECTION (J3010) IV PRN ×4 (12:05→12:39)
[2018-08-21 13:22] LABS: CALCIUM LEVEL 8.8 MG/DL (8.8-10.2); CREATININE FOR GFR 2.85 MG/DL (0.70-1.30); GLOMERULAR FILTRATION RATE 28.8 (>49); POTASSIUM SERUM 4.2 MEQ/L (3.5-5.1)
[2018-08-21] MEDS: **hydrALAZINE** 50 MG TAB PO SCH ×2 (14:00→22:28)
[2018-08-21] MEDS: HEPARIN SOD (PORCINE) 5000 UNITS/ML VIAL SC SCH ×2 (14:00→21:28)
[2018-08-21] MEDS: ceFAZolin SOD 1 GM in D5W MINI-BAG PLUS 50 ML IV SCH (15:03)
[2018-08-21] MEDS ORDERED: CARV12.5 PO (15:27)
[2018-08-21] MEDS ORDERED: CARVedilol 6.25 MG TAB PO SCH (18:00)
--- NOTE | 2018-08-21 18:44 | ROOPDOC ---
[facility] [place] Report Of Operation Report of Operation DATE OF PROCEDURE: 08/21/18 PREPROCEDURE DIAGNOSIS: Atrophic Kidney. POSTPROCEDURE DIAGNOSIS: Atrophic Kidney. PROCEDURE: Right robotic assisted laparoscopic simple nephrectomy (adrenal- sparing). SURGEON: Dr. Shireen Nino BRINEYARD SUPERVISOR: Shakila Schilling NP ANESTHESIA: General. OPERATIVE INDICATIONS: This is a 67-year-old male with difficult to control hypertension thought to be related to his atrophic right kidney. It has been recommended that he have the kidney removed. He was brought to the operating room today for this procedure. DESCRIPTION OF PROCEDURE: The patient was brought to the operating room where general anesthesia was induced. Prophylactic antibiotics were infused. The patient then had a Day catheter placed under sterile conditions. At this point, the patient was then placed in a left lateral decubitus position in preparation for a right robotic radical nephrectomy. All pressure points were appropriately padded. An axillary roll was placed. He was then secured to the table with tape. The patient then prepped and draped in the usual sterile fashion. Initial incision was for an 8mm port in line with the 11th rib. This was placed along the lateral rectus margin. A Veress needle was then utilized to achieve pneumoperitoneum. The 8mm camera port was then placed in through this incision and afterwards the camera was inserted. There were no injuries from Veress needle placement or initial trocar placement. The remaining ports were then placed under direct vision. The right hand robotic port was placed along the rectus margin just cephalad to the camera port, as well as a 5 mm port for a liver retractor, which was placed just inferior to the xiphoid. The 15 mm web marketing assistant port was placed just inferior to the camera port, with an 8mm robotic port in between. A 3rd left hand robotic port was placed between the anterior superior iliac spine and umbilicus. The robot was then docked. We began our dissection by lifting the liver off with the laparoscopic Allis clamp. Any adhesions between the liver and the upper aspect of Gerota's fascia were released using electrocautery. Some adhesions between the bowel and the abdominal side wall were also released. We then mobilized the right colon medially. The duodenum was kocherized. We then located the lateral margin of the inferior vena cava and traced it up toward the superior aspect of the kidney. At this point, we were then able to locate the hilum. The renal vein was then carefully dissected and cleared. Just inferior and posterior to the renal vein, we located the right renal artery and this was carefully dissected as well. At this point, three Weck clips were placed on the renal artery and the artery was then transected in between, leaving two Weck clips on the stay side. The renal vein was then prepared and was then ligated and transected using a robotic 60mm vascular stapler. Once that was done, the kidney was then carefully dissected on all sides. The adrenal gland was spared and dissected away. After completely mobilizing the kidney, the kidney was only attached by the ureter. The ureter was then ligated with two Weck clips and transected in between. Once that was done, we completed our mobi lization of the kidney and it was completely detached. At this point, we checked for hemostasis and hemostasis appeared excellent. The kidney was then placed in a large Endo catch bag in preparation for future retrieval. At this point, the liver retractor was removed and there was no damage to the liver. After confirming good hemostasis once again, the robot was undocked. At this point, we utilized the Samuel-Meryl fascial closure device to place an #0 Vicryl stitch through the fascia of 12mm port used for the stapler. Once that was done, the web marketing assistant port was extended and connected with the left hand robotic port. We then dissected down to the fascia and opened the fascia with electrocautery. We then bluntly spread the muscle. We did have to cut through the muscle a little bit in order to extract the kidney. Once enough space was cleared, we removed the kidney within the Endo catch bag and handed it off to be sent for pathologic analysis. At this point, we checked for hemostasis and it appeared excellent. We then closed the fascia with a running #0 Vicryl suture. At this point, we looked again within the abdomen and hemostasis looked good; specifically, from the extraction incision. No abdominal contents were caught within our closure. We then removed all the ports under direct vision and there was no bleeding from any of the port sites. We then irrigated all the inci sions. The subcutaneous tissue of the extraction site was then reapproximated with an interrupted #3-0 Vicryl suture. We then tied the previously placed #0 Vicryl ties down. We then closed the skin of all incisions using a running subcuticular #4-0 Monocryl suture. Once this was done, local anesthetic was applied to each incision and Dermabond was then applied. This marked the conclusion of the procedure. The patient was then taken out of the left lateral decubitus position, awakened from anesthesia and transported to the recovery room in stable condition. Estimated blood loss: 5 mL. Complications: None. Specimens: Right kidney. Plan: The patient will be admitted to the hospital postoperatively and he will be discharged home once his renal function is stable and he is tolerating a regular diet. SHIREEN NINO MD Aug 21, 2018 18:44
[2018-08-21] MEDS: TAMSULOSIN 0.4 MG CAP PO SCH (21:28)
[2018-08-22] VITALS (7 sets, daily range): BP systolic 142–191; BP diastolic 60–95
[2018-08-22] MEDS: ceFAZolin SOD 1 GM in D5W MINI-BAG PLUS 50 ML IV SCH (00:25)
[2018-08-22] MEDS: HEPARIN SOD (PORCINE) 5000 UNITS/ML VIAL SC SCH ×3 (05:29→21:30)
[2018-08-22] MEDS: **hydrALAZINE** 50 MG TAB PO SCH ×3 (05:32→21:28)
[2018-08-22 06:22] LABS: HEMATOCRIT 31.9 % (42.0-52.0); HEMOGLOBIN 10.7 g/dl (13.5-17.5); MEAN CORPUSCULAR HEMOGLOBIN 28.8 pg (27.0-33.0); MEAN CORPUSCULAR HGB CONC 33.5 g/dl (32.0-36.5); MEAN CORPUSCULAR VOLUME 85.8 fl (80.0-96.0); PLATELET COUNT, AUTOMATED 123 10^3/uL (150-450); RED BLOOD COUNT 3.72 10^6/uL (4.30-6.10); WHITE BLOOD COUNT 8.9 10^3/uL (4.0-10.0)
[2018-08-22 06:42] LABS: CALCIUM LEVEL 8.2 MG/DL (8.8-10.2); CREATININE FOR GFR 2.45 MG/DL (0.70-1.30); GLOMERULAR FILTRATION RATE 34.3 (>49); POTASSIUM SERUM 4.3 MEQ/L (3.5-5.1)
--- NOTE | 2018-08-22 07:49 | IPNPDOC ---
Assessment/Plan Date Seen The patient was seen on 08/22/18. Patient Summary This is a 67 y/o M POD1 s/p R robotic simple nephrectomy. He is doing well. Cr is a little higher than baseline at 2.45. Hb stable. Good UOP. Plan/VTE VTE Prophylaxis Ordered?: Yes VTE Exclusion Mechanical Proph: N/A:VTE Prophy Ordered VTE Exclusion Pharmacological: N/A:VTE Prophy Ordered Plan/Urinary Catheter Urinary Catheter: D/C Bhatia Plan - d/c bhatia - d/c IVF - strict I/Os - SCDs when in bed - SQH - continue home meds - incentive spirometry - ambulate as tolerated - possible discharge home later today Subjective Review oF Systems Chief Complaint The patient is a 67-year-old male admitted with a reason for visit of Atrophic Kidney. Events since Last Encounter No acute events o/n. Good pain control. Mild nausea this morning but no emesis. Tolerating diet. Had a BM this morning. No f/c/ns. Objective Physical Examination General Exam: Alert, Cooperative, No Acute Distress ABDOMEN EXAM: Soft, Tenderness (mild), Other (incisions clean/dry/intact) Neuro Exam: Normal Speech Psych Exam: Mental status NL Other physical findings catheter draining clear urine Vital Signs/I&O Vital Signs Date Time Temp Pulse Resp B/P (MAP) Pulse Ox O2 Delivery O2 Flow Rate FiO2 08/22/18 06:30 160/82 (108) 08/22/18 06:00 97.2 73 20 96 08/21/18 22:00 2.0 I&O- Last 24 Hours up to 6 AM 08/22/18 06:00 Intake Total 2470 ml Output Total 1079 ml Balance 1391 ml Laboratory Data Labs 24H Laboratory Tests 2 08/21/18 11:54: Nucleated Red Blood Cells % (auto) 0.0, Anion Gap 5L, Glomerular Filtration Rate 28.8L, Blood Urea Nitrogen 20H, Creatinine 2.85H, Sodium Level 143, Potassium Level 4.2, Chloride Level 109H, Carbon Dioxide Level 29, Calcium Level 8.8 08/22/18 05:47: Nucleated Red Blood Cells % (auto) 0.0, Anion Gap 7L, Glomerular Filtration Rate 34.3L, Blood Urea Nitrogen 21H, Creatinine 2.45H, Sodium Level 142, Potassium Level 4.3, Chloride Level 108H, Carbon Dioxide Level 27, Calcium Level 8.2L CBC/BMP Laboratory Tests 08/21/18 11:54 Red Blood Count 3.62 L, Mean Corpuscular Volume 84.8, Mean Corpuscular Hemoglobin 28.5, Mean Corpuscular Hemoglobin Concent 33.6, Red Cell Distribution Width 13.8, Calcium Level 8.8 08/22/18 05:47 Red Blood Count 3.72 L, Mean Corpuscular Volume 85.8, Mean Corpuscular Hemoglobin 28.8, Mean Corpuscular Hemoglobin Concent 33.5, Red Cell Distribution Width 13.4, Calcium Level 8.2 L SHIREEN NINO MD Aug 22, 2018 07:49
[2018-08-22] MEDS: PERCOCET 5MG/325MG TAB PO PRN ×4 (08:44→21:30)
[2018-08-22] MEDS: amLODIPine 10 MG TAB PO SCH (08:45)
[2018-08-22] MEDS: CARVedilol 12.5 MG TAB PO SCH ×2 (08:45→21:28)
[2018-08-22] MEDS: DOCUSATE SODIUM 100 MG CAP PO SCH ×2 (08:45→21:27)
[2018-08-22] MEDS ORDERED: PERC5TAB12 PO (18:38)
[2018-08-22] MEDS ORDERED: ACET1TAB55 PO (18:38)
[2018-08-22] MEDS ORDERED: COLA100C5 PO (18:38)
[2018-08-22] MEDS: TAMSULOSIN 0.4 MG CAP PO SCH (21:27)
[2018-08-23 02:00] VITALS: BP 145/74
[2018-08-23] MEDS: HEPARIN SOD (PORCINE) 5000 UNITS/ML VIAL SC SCH (05:11)
[2018-08-23] MEDS: **hydrALAZINE** 50 MG TAB PO SCH (05:11)
[2018-08-23] MEDS: PERCOCET 5MG/325MG TAB PO PRN (05:12)
[2018-08-23 06:00] VITALS: BP 146/81
[2018-08-23 06:38] LABS: HEMATOCRIT 28.3 % (42.0-52.0); HEMOGLOBIN 9.5 g/dl (13.5-17.5); MEAN CORPUSCULAR HEMOGLOBIN 28.4 pg (27.0-33.0); MEAN CORPUSCULAR HGB CONC 33.6 g/dl (32.0-36.5); MEAN CORPUSCULAR VOLUME 84.7 fl (80.0-96.0); PLATELET COUNT, AUTOMATED 105 10^3/uL (150-450); RED BLOOD COUNT 3.34 10^6/uL (4.30-6.10); WHITE BLOOD COUNT 7.2 10^3/uL (4.0-10.0)
[2018-08-23 06:55] LABS: CALCIUM LEVEL 8.5 MG/DL (8.8-10.2); CREATININE FOR GFR 2.46 MG/DL (0.70-1.30); GLOMERULAR FILTRATION RATE 34.1 (>49); POTASSIUM SERUM 4.3 MEQ/L (3.5-5.1)
[2018-08-23 08:42] VITALS: BP 146/81
[2018-08-23] MEDS: DOCUSATE SODIUM 100 MG CAP PO SCH (08:42)
[2018-08-23] MEDS: amLODIPine 10 MG TAB PO SCH (08:42)
[2018-08-23] MEDS: CARVedilol 12.5 MG TAB PO SCH (08:42)
--- NOTE | 2018-08-23 08:52 | IPNPDOC ---
Assessment/Plan Date Seen The patient was seen on 08/23/18. Plan/VTE VTE Prophylaxis Ordered?: Yes VTE Exclusion Mechanical Proph: N/A:VTE Prophy Ordered VTE Exclusion Pharmacological: N/A:VTE Prophy Ordered Plan/Urinary Catheter Urinary Catheter: D/C Day Plan Doing well POD #2 will discharge home today. The patient agrees with this plan Anticipated Discharge: Home Subjective Review oF Systems Chief Complaint The patient is a 67-year-old male admitted with a reason for visit of Atrophic Kidney. POD #2 Events since Last Encounter He feels well this morning, ambulating, taking regular diet, pain is under control Objective Physical Examination General Exam: Alert, Cooperative, No Acute Distress ABDOMEN EXAM: Soft, Tenderness (mild), Other (incisions clean/dry/intact) Neuro Exam: Normal Speech Psych Exam: Mental status NL Vital Signs/I&O Vital Signs Date Time Temp Pulse Resp B/P (MAP) Pulse Ox O2 Delivery O2 Flow Rate FiO2 08/23/18 08:42 71 146/81 08/23/18 06:00 99.7 18 94 08/21/18 22:00 2.0 I&O- Last 24 Hours up to 6 AM 08/23/18 06:00 Intake Total 1860 ml Output Total 1200 ml Balance 660 ml Laboratory Data Labs 24H Laboratory Tests 2 08/23/18 06:07: Nucleated Red Blood Cells % (auto) 0.0, Anion Gap 5L, Glomerular Filtration Rate 34.1L, Blood Urea Nitrogen 27H, Creatinine 2.46H, Sodium Level 139, Potassium Level 4.3, Chloride Level 106, Carbon Dioxide Level 28, Calcium Level 8.5L CBC/BMP Laboratory Tests 08/23/18 06:07 Red Blood Count 3.34 L, Mean Corpuscular Volume 84.7, Mean Corpuscular Hemoglobin 28.4, Mean Corpuscular Hemoglobin Concent 33.6, Red Cell Distribution Width 13.6, Calcium Level 8.5 L LINO ALVARADO MD Aug 23, 2018 08:52
--- NOTE | 2018-08-26 07:59 | DSES ---
DATE OF ADMISSION: 08/21/2018 DATE OF DISCHARGE: 08/23/2018 ADMISSION DIAGNOSIS: Atrophic right kidney. ADMITTING PHYSICIAN: Dr. Garo Andersen. DISCHARGE PHYSICIAN: Dr. Francisco Sanchez. PROCEDURES PERFORMED: Right robotic assisted laparoscopic simple nephrectomy in 08/21/2018. HISTORY OF PRESENT ILLNESS: This is a 67-year-old male who has had difficult to control hypertension and was also found to have an atrophic right kidney. This evaluation from nephrology led them to believe that his atrophic right kidney might have been contributing to his hypertension. It was therefore recommended to have the kidney removed. He was admitted to the hospital after undergoing that procedure. HOSPITALIZATION COURSE: The patient's postoperative course was unremarkable. By postoperative day 1, he was ambulating well and tolerating a regular diet. He did have a little difficulty with pain control. His blood work including his hemoglobin and his creatinine were within acceptable limits. Specifically his creatinine was approximately 2.5 which was not far from his baseline creatinine. On postoperative day 2, patient's pain was much better controlled and his labs remained stable. He had excellent urine output. He was therefore deemed ready for discharge on postoperative day 2. He was discharged home with plan for him to followup in the clinic in 1-2 weeks.
== END 2018-08-23 12:40 | disposition home or self-care (01) | DRG 443 ==
LOC: M OR 05:59 → M MS5PR 13:10
PROVIDERS: ADMIT Urology; ATTEND Urology
PROC: 8E0W4CZ Robotic Assisted Procedure of Trunk Region, Percutaneous Endoscopic Approach (ICD-10-PCS; 2018-08-21)
PROC: 0TT04ZZ Resection of Right Kidney, Percutaneous Endoscopic Approach (ICD-10-PCS; principal; 2018-08-21 07:30)
DX: N26.1 Atrophy of kidney (terminal) (principal); I10 Essential (primary) hypertension